=== PATIENT | female | born 1945 | race Two or more races ===

== ENCOUNTER 2021-12-30 21:42 | Inpatient (IN) | payer OTHER, MEDICARE ==
[2021-12-30] MEDS ORDERED: Morphine 4 MG/ML VIAL ONE (22:51)
[2021-12-30] MEDS ORDERED: Ondansetron PF 4 MG/2 ML Vial ONE (22:57)
[2021-12-30] MEDS ORDERED: Ketorolac Tromethamine 30 MG/ML VIAL ONE (23:30)
[2021-12-31] MEDS ORDERED: Morphine 4 MG/ML VIAL ONE (00:23)
[2021-12-31 00:57] LABS: #Eosinphils 0.1 thou/uL (0.0-0.7); #Lymphocytes 0.7 thou/uL (1.20-3.40); #Monocytes 0.5 thou/uL (0.11-0.59); %Basophils 0.1 % (0.0-1.0); %Eosinophils 0.4 % (0.0-10.0); %Lymphocytes 5.2 % (21.0-51.0); %Monocytes 3.6 % (0.0-10.0); %Neutrophils 90.7 % (42.0-75.0); Hemoglobin 13.9 g/dL (12.0-16.0); Mean Corpuscular HGB CONC 33.6 g/dL (32.0-36.0); Mean Corpuscular Hemoglobin 31.6 pg (27.0-31.0); Mean Platelet Volume 7.1 fL (7.4-10.4); Platelet Count 174 thou/uL (130-400); RBC Distribution Width 12.6 % (11.5-14.5); White Blood Cell (WBC) Count 13.3 thou/uL (4.8-10.8)
[2021-12-31 01:10] LABS: ALT (SGPT) 10 U/L (8-55); AST (SGOT) 22 U/L (5-34); Albumin 4.3 g/dL (3.4-4.8); Alkaline Phosphatase 131 U/L (40-110); Anion Gap 14 mmol/L (10-20); BUN (Urea Nitrogen) 11 mg/dL (9.8-20.1); Bilirubin, Total 0.5 mg/dL (0.2-1.2); Calc. Creatinine Clearance 0 mL/min (70-130); Calcium 9.5 mg/dL (7.8-10.44); Carbon Dioxide 25 mmol/L (23-31); Chloride 105 mmol/L (98-107); Estimated GFR 90; Globulin 2.7 g/dL (2.4-3.5); Glucose 142 mg/dL (83-110); Potassium 3.3 mmol/L (3.5-5.1); Sodium 141 mmol/L (136-145)
[2021-12-31] MEDS ORDERED: Acetaminophen 325 MG TAB PO PRN (03:52)
[2021-12-31] MEDS ORDERED: Morphine 2 MG/ML VIAL SLOW IVP PRN (03:54)
[2021-12-31] MEDS ORDERED: Potassium Chloride 20 MEQ TAB PO SCH (04:00)
[2021-12-31] MEDS ORDERED: Electrolyte Replacement Protocol 1 EACH FS SCH (04:00)
[2021-12-31] MEDS ORDERED: Cyclobenzaprine 10 MG TAB PO SCH (04:45)
[2021-12-31] MEDS: HYDROcodone/Acetaminophen 5/325 mg Tablet PO PRN ×3 (05:25→15:21)
[2021-12-31 05:30] VITALS: BMI 24.7
[2021-12-31 06:48] LABS: Magnesium 1.9 mg/dL (1.6-2.6)
[2021-12-31] MEDS ORDERED: Magnesium 2 GM/50 ML(in water) 2 GM in Premix Bag 1 BAG IVPB SCH (09:00)
[2021-12-31] MEDS: Enoxaparin Sodium 30 MG/0.3 ML SYRINGE SC SCH (10:06)
[2021-12-31 15:07] LABS: Bacteria/HPF None Seen HPF (None Seen); Bilirubin Negative (Negative); Blood, Urine 1+ (Negative); Clarity Clear (Clear); Glucose, Urine (Dipstick) 70 mg/dL (Negative); Ketone, Urine Negative (Negative); Leukocyte Negative Leu/uL (Negative); Nitrite Negative (Negative); Protein, Urine (Dipstick) Negative (Neg-Trace); Specific Gravity, Urine 1.021 (1.002-1.036); Squamous Epithelial 0-3 HPF (0-3); Urobilinogen Normal mg/dL (Less than 2); WBC/HPF 0-3 HPF (0-3); pH, Urine 6.5 (5.0-9.0)
[2021-12-31 15:15] LABS: Urine Culture Reflex No No
[2022-01-01] MEDS: HYDROcodone/Acetaminophen 5/325 mg Tablet PO PRN ×5 (00:02→22:02)
[2022-01-01 06:55] LABS: #Eosinphils 0.2 thou/uL (0.0-0.7); #Monocytes 0.4 thou/uL (0.11-0.59); #Neutrophils 3.8 thou/uL (1.40-6.50); %Basophils 0.4 % (0.0-1.0); %Eosinophils 2.9 % (0.0-10.0); %Lymphocytes 18.9 % (21.0-51.0); %Monocytes 6.7 % (0.0-10.0); %Neutrophils 71.1 % (42.0-75.0); Hemoglobin 12.9 g/dL (12.0-16.0); Mean Corpuscular HGB CONC 33.4 g/dL (32.0-36.0); Mean Corpuscular Hemoglobin 32.1 pg (27.0-31.0); Mean Corpuscular Volume 96.2 fL (78.0-98.0); Mean Platelet Volume 7.2 fL (7.4-10.4); Platelet Count 143 thou/uL (130-400); RBC Distribution Width 12.7 % (11.5-14.5); Red Blood Cell (RBC) Count 4.03 mill/uL (4.20-5.40); White Blood Cell (WBC) Count 5.3 thou/uL (4.8-10.8)
[2022-01-01 07:00] LABS: Anion Gap 13 mmol/L (10-20); BUN (Urea Nitrogen) 9 mg/dL (9.8-20.1); Calc. Creatinine Clearance 92 mL/min (70-130); Carbon Dioxide 26 mmol/L (23-31); Chloride 104 mmol/L (98-107); Estimated GFR 92; Glucose 110 mg/dL (83-110); Potassium 3.6 mmol/L (3.5-5.1); Sodium 139 mmol/L (136-145)
[2022-01-01] MEDS: Enoxaparin Sodium 30 MG/0.3 ML SYRINGE SC SCH (09:08)
[2022-01-01] MEDS: Cyclobenzaprine 10 MG TAB PO PRN ×2 (13:45→23:44)
[2022-01-01] MEDS: Gabapentin 300 MG CAP PO SCH (20:45)
[2022-01-01] MEDS: Atorvastatin Calcium 40 MG TAB PO SCH (20:45)
[2022-01-02] MEDS: HYDROcodone/Acetaminophen 5/325 mg Tablet PO PRN ×3 (06:25→18:35)
[2022-01-02 07:13] LABS: #Basophils 0.1 thou/uL (0.0-0.2); #Eosinphils 0.2 thou/uL (0.0-0.7); #Lymphocytes 0.8 thou/uL (1.20-3.40); #Monocytes 0.5 thou/uL (0.11-0.59); #Neutrophils 4.6 thou/uL (1.40-6.50); %Basophils 0.9 % (0.0-1.0); %Lymphocytes 13.2 % (21.0-51.0); %Monocytes 8.1 % (0.0-10.0); %Neutrophils 74.8 % (42.0-75.0); Hemoglobin 13.5 g/dL (12.0-16.0); Mean Corpuscular HGB CONC 33.6 g/dL (32.0-36.0); Mean Corpuscular Volume 95.4 fL (78.0-98.0); Platelet Count 147 thou/uL (130-400); RBC Distribution Width 12.7 % (11.5-14.5); Red Blood Cell (RBC) Count 4.23 mill/uL (4.20-5.40); White Blood Cell (WBC) Count 6.1 thou/uL (4.8-10.8)
[2022-01-02 07:38] LABS: Anion Gap 13 mmol/L (10-20); BUN (Urea Nitrogen) 12 mg/dL (9.8-20.1); Calc. Creatinine Clearance 86 mL/min (70-130); Calcium 9.5 mg/dL (7.8-10.44); Carbon Dioxide 27 mmol/L (23-31); Chloride 101 mmol/L (98-107); Estimated GFR 91; Glucose 105 mg/dL (83-110); Potassium 3.5 mmol/L (3.5-5.1); Sodium 137 mmol/L (136-145)
[2022-01-02] MEDS: Amlodipine 5 MG TAB PO SCH (09:41)
[2022-01-02] MEDS: Enoxaparin Sodium 40 MG/0.4 ML SYRINGE SC SCH (09:46)
[2022-01-02] MEDS: Trospium 20 MG TAB PO SCH ×2 (09:51→21:05)
[2022-01-02] MEDS: Cyclobenzaprine 10 MG TAB PO PRN ×2 (10:46→21:10)
[2022-01-02] MEDS: Letrozole 2.5 MG TAB PO SCH (12:33)
[2022-01-02] MEDS ORDERED: Potassium Chloride 20 MEQ TAB PO SCH (13:00)
[2022-01-02] MEDS: Gabapentin 300 MG CAP PO SCH (21:05)
[2022-01-02] MEDS: Atorvastatin Calcium 40 MG TAB PO SCH (21:06)
[2022-01-03] MEDS: HYDROcodone/Acetaminophen 5/325 mg Tablet PO PRN ×4 (06:49→23:27)
[2022-01-03 06:52] LABS: #Eosinphils 0.3 thou/uL (0.0-0.7); #Monocytes 0.4 thou/uL (0.11-0.59); #Neutrophils 3.6 thou/uL (1.40-6.50); %Basophils 0.2 % (0.0-1.0); %Eosinophils 5.1 % (0.0-10.0); %Lymphocytes 18.6 % (21.0-51.0); %Monocytes 8.4 % (0.0-10.0); %Neutrophils 67.7 % (42.0-75.0); Hemoglobin 14.1 g/dL (12.0-16.0); Mean Corpuscular HGB CONC 34.5 g/dL (32.0-36.0); Mean Corpuscular Hemoglobin 33.2 pg (27.0-31.0); Mean Corpuscular Volume 96.1 fL (78.0-98.0); Mean Platelet Volume 6.9 fL (7.4-10.4); Platelet Count 157 thou/uL (130-400); RBC Distribution Width 12.6 % (11.5-14.5); Red Blood Cell (RBC) Count 4.25 mill/uL (4.20-5.40); White Blood Cell (WBC) Count 5.3 thou/uL (4.8-10.8)
[2022-01-03 07:03] LABS: Anion Gap 8 mmol/L (10-20); BUN (Urea Nitrogen) 16 mg/dL (9.8-20.1); Calc. Creatinine Clearance 71 mL/min (70-130); Calcium 9.7 mg/dL (7.8-10.44); Carbon Dioxide 33 mmol/L (23-31); Chloride 101 mmol/L (98-107); Estimated GFR 79; Glucose 98 mg/dL (83-110); Potassium 4.4 mmol/L (3.5-5.1); Sodium 138 mmol/L (136-145)
[2022-01-03] MEDS: Trospium 20 MG TAB PO SCH ×2 (09:16→20:10)
[2022-01-03] MEDS: Enoxaparin Sodium 40 MG/0.4 ML SYRINGE SC SCH (09:16)
[2022-01-03] MEDS: Amlodipine 5 MG TAB PO SCH (09:16)
[2022-01-03] MEDS: Letrozole 2.5 MG TAB PO SCH (09:27)
[2022-01-03] MEDS: Cyclobenzaprine 10 MG TAB PO PRN (09:27)
[2022-01-03] MEDS: Morphine 4 MG/ML VIAL SLOW IVP PRN ×2 (11:40→15:11)
[2022-01-03] MEDS: Gabapentin 300 MG CAP PO SCH (20:09)
[2022-01-03] MEDS: Atorvastatin Calcium 40 MG TAB PO SCH (20:09)
[2022-01-04] MEDS: Morphine 4 MG/ML VIAL SLOW IVP PRN ×2 (04:53→11:11)
[2022-01-04 06:12] LABS: #Eosinphils 0.3 thou/uL (0.0-0.7); #Monocytes 0.6 thou/uL (0.11-0.59); #Neutrophils 4.9 thou/uL (1.40-6.50); %Basophils 0.1 % (0.0-1.0); %Eosinophils 4.5 % (0.0-10.0); %Lymphocytes 14.5 % (21.0-51.0); %Monocytes 8.5 % (0.0-10.0); %Neutrophils 72.4 % (42.0-75.0); Hemoglobin 14.3 g/dL (12.0-16.0); Mean Corpuscular HGB CONC 33.1 g/dL (32.0-36.0); Mean Corpuscular Hemoglobin 31.8 pg (27.0-31.0); Mean Corpuscular Volume 96.2 fL (78.0-98.0); Mean Platelet Volume 6.8 fL (7.4-10.4); Platelet Count 181 thou/uL (130-400); RBC Distribution Width 12.8 % (11.5-14.5); Red Blood Cell (RBC) Count 4.49 mill/uL (4.20-5.40); White Blood Cell (WBC) Count 6.8 thou/uL (4.8-10.8)
[2022-01-04 06:21] LABS: Anion Gap 13 mmol/L (10-20); BUN (Urea Nitrogen) 16 mg/dL (9.8-20.1); Calc. Creatinine Clearance 81 mL/min (70-130); Calcium 9.6 mg/dL (7.8-10.44); Carbon Dioxide 26 mmol/L (23-31); Chloride 102 mmol/L (98-107); Estimated GFR 90; Glucose 107 mg/dL (83-110); Potassium 3.8 mmol/L (3.5-5.1); Sodium 137 mmol/L (136-145)
[2022-01-04] MEDS ORDERED: CEFAZOLIN 2 GM in Sodium Chloride 0.9% 100 ML IVPB SCH (07:15)
[2022-01-04] MEDS ORDERED: Fentanyl 100 MCG/2 ML VIAL SLOW IVP SCH (08:31)
[2022-01-04] MEDS ORDERED: Fentanyl 100 MCG/2 ML VIAL SLOW IVP PRN (08:31)
[2022-01-04] MEDS: Amlodipine 5 MG TAB PO SCH (10:28)
[2022-01-04] MEDS: Trospium 20 MG TAB PO SCH ×2 (10:28→20:49)
[2022-01-04] MEDS: Letrozole 2.5 MG TAB PO SCH (10:29)
[2022-01-04] MEDS ORDERED: CEFAZOLIN 2 GM VIAL ONE (12:59)
[2022-01-04] MEDS ORDERED: Sodium Chloride 0.9% 100 ML ONE (12:59)
[2022-01-04] MEDS ORDERED: Famotidine/PF 20 mg/2ml Vial ONE (13:05)
[2022-01-04] MEDS ORDERED: Metoclopramide HCl 10 MG/2 ML VIAL ONE (13:05)
[2022-01-04] MEDS ORDERED: Morphine 4 MG/ML VIAL ONE (13:06)
[2022-01-04] MEDS ORDERED: fentaNYL Citrate/PF 100 MCG/2 ML SYRINGE ONE (13:07)
[2022-01-04] MEDS ORDERED: Rocuronium Bromide 10 MG/ML (10ML VIAL) ONE (13:28)
[2022-01-04] MEDS ORDERED: Glycopyrrolate 0.2 MG/ML 5 ML SYRINGE ONE (13:28)
[2022-01-04] MEDS ORDERED: PROPOFOL 200 MG/20 ML VIAL ONE (13:28)
[2022-01-04] MEDS ORDERED: Dexamethasone 20 MG/5 ML VIAL ONE (13:28)
[2022-01-04] MEDS ORDERED: NEOSTIGMINE 3 MG/3 ML SYR 3 MG/3 ML SYRINGE ONE (13:28)
[2022-01-04] MEDS ORDERED: Ondansetron PF 4 MG/2 ML Vial ONE (13:28)
[2022-01-04] MEDS ORDERED: Ondansetron PF 4 MG/2 ML Vial IVP PRN (17:19)
[2022-01-04] MEDS: Atorvastatin Calcium 40 MG TAB PO SCH (20:46)
[2022-01-04] MEDS: Gabapentin 300 MG CAP PO SCH (20:46)
[2022-01-04] MEDS: CEFAZOLIN 2 GM in Sodium Chloride 0.9% 100 ML IVPB SCH (20:50)
[2022-01-04] MEDS: HYDROcodone/Acetaminophen 5/325 mg Tablet PO PRN (20:54)
[2022-01-05] MEDS: HYDROcodone/Acetaminophen 5/325 mg Tablet PO PRN ×5 (03:11→22:59)
[2022-01-05] MEDS: CEFAZOLIN 2 GM in Sodium Chloride 0.9% 100 ML IVPB SCH ×2 (05:15→13:13)
[2022-01-05 06:31] LABS: #Lymphocytes 0.6 thou/uL (1.20-3.40); #Neutrophils 11.4 thou/uL (1.40-6.50); %Eosinophils 0.1 % (0.0-10.0); %Lymphocytes 4.4 % (21.0-51.0); %Monocytes 7.5 % (0.0-10.0); %Neutrophils 87.9 % (42.0-75.0); Hemoglobin 13.9 g/dL (12.0-16.0); Mean Corpuscular HGB CONC 33.1 g/dL (32.0-36.0); Mean Corpuscular Hemoglobin 31.8 pg (27.0-31.0); Mean Corpuscular Volume 96.2 fL (78.0-98.0); Mean Platelet Volume 7.1 fL (7.4-10.4); Platelet Count 198 thou/uL (130-400); RBC Distribution Width 12.6 % (11.5-14.5); Red Blood Cell (RBC) Count 4.38 mill/uL (4.20-5.40)
[2022-01-05 07:57] LABS: Anion Gap 15 mmol/L (10-20); BUN (Urea Nitrogen) 20 mg/dL (9.8-20.1); Calc. Creatinine Clearance 79 mL/min (70-130); Calcium 9.6 mg/dL (7.8-10.44); Carbon Dioxide 24 mmol/L (23-31); Chloride 102 mmol/L (98-107); Estimated GFR 89; Glucose 152 mg/dL (83-110); Potassium 4.2 mmol/L (3.5-5.1); Sodium 137 mmol/L (136-145)
[2022-01-05] MEDS: Amlodipine 5 MG TAB PO SCH (08:49)
[2022-01-05] MEDS: Trospium 20 MG TAB PO SCH ×2 (08:51→20:25)
[2022-01-05] MEDS: Letrozole 2.5 MG TAB PO SCH (11:10)
[2022-01-05] MEDS: Gabapentin 300 MG CAP PO SCH (20:25)
[2022-01-05] MEDS: Atorvastatin Calcium 40 MG TAB PO SCH (20:26)
[2022-01-06] MEDS: HYDROcodone/Acetaminophen 5/325 mg Tablet PO PRN ×3 (04:54→21:19)
[2022-01-06 07:08] LABS: #Eosinphils 0.2 thou/uL (0.0-0.7); #Lymphocytes 1.1 thou/uL (1.20-3.40); #Monocytes 0.9 thou/uL (0.11-0.59); #Neutrophils 6.7 thou/uL (1.40-6.50); %Basophils 0.1 % (0.0-1.0); %Eosinophils 2.7 % (0.0-10.0); %Lymphocytes 12.3 % (21.0-51.0); %Monocytes 9.7 % (0.0-10.0); %Neutrophils 75.2 % (42.0-75.0); Hemoglobin 11.3 g/dL (12.0-16.0); Mean Corpuscular Hemoglobin 33.1 pg (27.0-31.0); Mean Corpuscular Volume 97.4 fL (78.0-98.0); Mean Platelet Volume 7.3 fL (7.4-10.4); Platelet Count 172 thou/uL (130-400); RBC Distribution Width 12.6 % (11.5-14.5); Red Blood Cell (RBC) Count 3.42 mill/uL (4.20-5.40); White Blood Cell (WBC) Count 8.9 thou/uL (4.8-10.8)
[2022-01-06 07:25] LABS: Anion Gap 12 mmol/L (10-20); BUN (Urea Nitrogen) 15 mg/dL (9.8-20.1); Calc. Creatinine Clearance 93 mL/min (70-130); Calcium 8.6 mg/dL (7.8-10.44); Carbon Dioxide 26 mmol/L (23-31); Chloride 102 mmol/L (98-107); Estimated GFR 93; Glucose 106 mg/dL (83-110); Potassium 3.7 mmol/L (3.5-5.1); Sodium 136 mmol/L (136-145)
[2022-01-06] MEDS: Amlodipine 5 MG TAB PO SCH (09:21)
[2022-01-06] MEDS: Trospium 20 MG TAB PO SCH ×2 (09:21→21:19)
[2022-01-06] MEDS: Letrozole 2.5 MG TAB PO SCH (09:22)
[2022-01-06] MEDS: Gabapentin 300 MG CAP PO SCH (21:19)
[2022-01-06] MEDS: Atorvastatin Calcium 40 MG TAB PO SCH (21:19)
[2022-01-07] MEDS: Trospium 20 MG TAB PO SCH ×2 (09:15→21:50)
[2022-01-07] MEDS: Letrozole 2.5 MG TAB PO SCH (09:16)
[2022-01-07] MEDS: Amlodipine 5 MG TAB PO SCH (09:16)
[2022-01-07] MEDS: HYDROcodone/Acetaminophen 5/325 mg Tablet PO PRN ×3 (09:18→21:51)
[2022-01-07] MEDS ORDERED: FENTANYL 50 MCG/ML VIAL 50 MCG/ML VIAL SLOW IVP PRN (14:45)
[2022-01-07] MEDS ORDERED: Bisacodyl 5 MG TAB PO PRN (15:33)
[2022-01-07] MEDS ORDERED: Bisacodyl 5 MG TAB PO SCH (15:45)
[2022-01-07] MEDS: Gabapentin 300 MG CAP PO SCH (21:50)
[2022-01-07] MEDS: Atorvastatin Calcium 40 MG TAB PO SCH (21:50)
[2022-01-08] MEDS: Trospium 20 MG TAB PO SCH ×2 (08:50→20:47)
[2022-01-08] MEDS: Amlodipine 5 MG TAB PO SCH (08:50)
[2022-01-08] MEDS: HYDROcodone/Acetaminophen 5/325 mg Tablet PO PRN ×3 (08:51→20:48)
[2022-01-08] MEDS: Letrozole 2.5 MG TAB PO SCH (08:51)
[2022-01-08] MEDS: Atorvastatin Calcium 40 MG TAB PO SCH (20:47)
[2022-01-08] MEDS: Gabapentin 300 MG CAP PO SCH (20:47)
[2022-01-09] MEDS: HYDROcodone/Acetaminophen 5/325 mg Tablet PO PRN ×3 (05:31→20:31)
[2022-01-09] MEDS: Letrozole 2.5 MG TAB PO SCH (08:12)
[2022-01-09] MEDS: Amlodipine 5 MG TAB PO SCH (08:13)
[2022-01-09] MEDS: Trospium 20 MG TAB PO SCH ×2 (08:16→20:31)
[2022-01-09] MEDS: Gabapentin 300 MG CAP PO SCH (20:30)
[2022-01-09] MEDS: Atorvastatin Calcium 40 MG TAB PO SCH (20:30)
[2022-01-10] MEDS: Trospium 20 MG TAB PO SCH ×2 (07:59→20:40)
[2022-01-10] MEDS: Letrozole 2.5 MG TAB PO SCH (07:59)
[2022-01-10] MEDS: Amlodipine 5 MG TAB PO SCH (08:01)
[2022-01-10] MEDS: HYDROcodone/Acetaminophen 5/325 mg Tablet PO PRN ×2 (09:25→20:40)
[2022-01-10] MEDS: Gabapentin 300 MG CAP PO SCH (20:40)
[2022-01-10] MEDS: Atorvastatin Calcium 40 MG TAB PO SCH (20:40)
[2022-01-10] MEDS: Enoxaparin Sodium 40 MG/0.4 ML SYRINGE SC SCH (20:41)
[2022-01-10 21:35] VITALS: TEMP 98.2
[2022-01-11] MEDS: Trospium 20 MG TAB PO SCH (08:26)
[2022-01-11] MEDS: Amlodipine 5 MG TAB PO SCH (08:26)
[2022-01-11] MEDS: Enoxaparin Sodium 40 MG/0.4 ML SYRINGE SC SCH (08:27)
[2022-01-11] MEDS: Letrozole 2.5 MG TAB PO SCH (08:33)
[2022-01-11 08:34] VITALS: BP 124/76
[2022-01-11] MEDS: HYDROcodone/Acetaminophen 5/325 mg Tablet PO PRN (13:50)
== END 2022-01-11 14:40 | disposition home or self-care (01) | DRG 522 ==
LOC: ERS 21:42 → T4-B 12-31 03:34 → OBSVTOIN 01-02 12:10
PROVIDERS: ADMIT Student in an Organized Health Care Education/Training Program; ATTEND Hospitalist
PROC: 0SRS01Z Replacement of Left Hip Joint, Femoral Surface with Metal Synthetic Substitute, Open Approach (ICD-10-PCS; principal; 2022-01-04)
DX: S72.002A Fracture of unspecified part of neck of left femur, initial encounter for closed fracture (principal); I48.91 Unspecified atrial fibrillation; I10 Essential (primary) hypertension; Z20.822 Contact with and (suspected) exposure to COVID-19; W01.0XXA Fall on same level from slipping, tripping and stumbling without subsequent striking against object, initial encounter; E87.6 Hypokalemia; C50.919 Malignant neoplasm of unspecified site of unspecified female breast; G62.9 Polyneuropathy, unspecified; D64.9 Anemia, unspecified; K21.9 Gastro-esophageal reflux disease without esophagitis; Z90.12 Acquired absence of left breast and nipple; Z90.49 Acquired absence of other specified parts of digestive tract; Z86.73 Personal history of transient ischemic attack (TIA), and cerebral infarction without residual deficits; Z79.899 Other long term (current) drug therapy; Z91.040 Latex allergy status; Z92.21 Personal history of antineoplastic chemotherapy; Z92.3 Personal history of irradiation; Z90.710 Acquired absence of both cervix and uterus; Z82.49 Family history of ischemic heart disease and other diseases of the circulatory system; Z80.1 Family history of malignant neoplasm of trachea, bronchus and lung; Z80.8 Family history of malignant neoplasm of other organs or systems; Z80.0 Family history of malignant neoplasm of digestive organs; Z80.41 Family history of malignant neoplasm of ovary
CPT/HCPCS: 36415; 36416; 72170; 72192; 74176; 80048; 80053; 81001; 83735; 85025; 87811; 88304; 88311; 88342; 93005; 96372; 96374; 96375; 96376; C1713; C1776; G0378; J0690; J1100; J1650; J1885; J2270; J2405; J2704; J2765; J3010; J3475; J3490; S0028; U0003; U0005